=== PATIENT | female | born 1990 ===

== ENCOUNTER 2024-03-15 11:01 | Inpatient (IN) | payer OTHER ==
[~2024-03-15] VITALS: Ht 162.6 cm; Wt 2.3 kg
[2024-03-23 18:56] VITALS: BP 120/80
[2024-03-23] MEDS ORDERED: MISOPROSTOL 25 MCG TABLET ONE (19:20)
[2024-03-23 20:09] LABS: HEMATOCRIT 36.6 % (36.0-45.00); HEMOGLOBIN 12.1 g/dL (12.0-15.00); MEAN CORPUSCULAR HEMOGLOBIN 27.5 pg (27.00-32.0); MEAN CORPUSCULAR HGB CONC 33.1 g/dl (32.0-36.0); PLATELET COUNT 319 K/uL (150-450); RED BLOOD COUNT 4.41 M/uL (4.00-6.00); RED CELL DISTRIBUTION WIDTH 15.7 % (11.5-14.5)
[2024-03-23] MEDS ORDERED: PRENATAL TABLE1 EAC1 PO (20:11)
[2024-03-23 20:16] LABS: URINE APPEARANCE Clear; URINE BILIRRUBIN Negative (NEGATIVE); URINE BLOOD Negative; URINE COLOR Dark Yellow; URINE GLUCOSE Negative (NEGATIVE); URINE KETONE Trace (NEGATIVE); URINE LEUKOCYTE Negative; URINE NITRATE Negative; URINE PROTEIN 30 (NEGATIVE)
[2024-03-23 20:19] LABS: URINE BACTERIA 558.1 uL (0.0-1933); URINE EPITHELIAL CELLS 14.8 uL (0.0-38.8); URINE RBC 28.8 uL (0.0-20.8); URINE WBC 8.8 uL (0.0-23.2)
[2024-03-23 20:20] LABS: URINE CAST 0.58 uL (0.0-1.40)
[2024-03-23 20:24] LABS: INR < 0.93; PARTIAL THROMBOPLASTIN TIME 32.7 SECONDS (22.0-34.0); PROTHROMBIN TIME 9.9 SECONDS (9.0-11.5)
[2024-03-23 20:36] LABS: ALBUMIN 2.7 gm/dL (3.4-5.0); BILIRUBIN TOTAL 0.29 mg/dL (0.3-1.2); CALCIUM 8.6 mg/dL (8.5-10.1); CREATININE SERUM 0.51 mg/dL (0.55-1.02); GFR 138.04; GLOBULINA 3.7 G/DL (2.4-3.5); POTASSIUM 4.02 mEq/L (3.5-5.1); TOTAL PROTEIN 6.4 gm/dL (6.4-8.2)
[2024-03-23] MEDS ORDERED: RINGERS SOLUTION,LACTATED 1,000 ML IV SCH (22:45)
[2024-03-23] MEDS ORDERED: MORPHINE SULFATE 4 MG/ML VIAL IV PRN (23:15)
[2024-03-23 23:23] VITALS: BP 114/64
[2024-03-23] MEDS ORDERED: TERBUTALINE SULFATE 1 MG/ML AMPUL ONE (23:52)
[2024-03-24] MEDS ORDERED: ERYTHROMYCIN BASE OPHT 1GM EACH TUBE OP ONE ×2 (00:04→02:15)
[2024-03-24] MEDS ORDERED: OXYTOCIN 10 UNITS/ML VIAL ONE (00:04)
[2024-03-24] MEDS ORDERED: TERBUTALINE SULFATE 1 MG/ML AMPUL SUBCUTANEO ONE (00:15)
[2024-03-24] MEDS ORDERED: METOCLOPRAMIDE HCL 5 MG/ML VIAL ONE (00:38)
[2024-03-24] MEDS ORDERED: MORPHINE SULFATE 4 MG/ML CARTRIDGE IV PRN (01:45)
[2024-03-24] MEDS ORDERED: OXYTOCIN 1,000 ML IV SCH (01:45)
[2024-03-24] MEDS ORDERED: OXYTOCIN 10 UNITS/ML VIAL IV ONE (02:15)
[2024-03-24] MEDS ORDERED: MORPHINE SULFATE 4 MG/ML VIAL IV ONE (03:30)
[2024-03-24 05:17] VITALS: BP 109/68
[2024-03-24 08:05] VITALS: BP 107/70
[2024-03-24] MEDS ORDERED: OxyCODONE HCL/APAP UD (PERCOCET) PO PRN (12:30)
[2024-03-24 15:44] VITALS: BP 113/77
[2024-03-25 00:38] VITALS: BP 109/70
[2024-03-25] MEDS ORDERED: IBUprofen 400 MG TABLET PO SCH (09:00)
[2024-03-25 14:45] LABS: HEMATOCRIT 33.5 % (36.0-45.00); HEMOGLOBIN 11.1 g/dL (12.0-15.00); MEAN CELL VOLUME 84.2 fL (80.00-100.00); MEAN CORPUSCULAR HEMOGLOBIN 27.9 pg (27.00-32.0); MEAN CORPUSCULAR HGB CONC 33.1 g/dl (32.0-36.0); PLATELET COUNT 304 K/uL (150-450); RED BLOOD COUNT 3.97 M/uL (4.00-6.00)
[2024-03-25 16:05] VITALS: BP 110/74
[2024-03-26 01:22] VITALS: BP 128/85
[2024-03-26 09:05] VITALS: BP 135/81
[2024-03-26 16:49] VITALS: BP 113/66
[2024-03-27 01:32] VITALS: BP 129/73
[2024-03-27 08:50] VITALS: BP 110/75
== END 2024-03-27 15:10 | disposition home or self-care (01) | DRG 788 ==
LOC: OB/GYN 03-23 16:38 → LDR 03-23 16:38 → OB/GYN 03-24 07:09
PROVIDERS: ADMIT Obstetrics & Gynecology; ATTEND Obstetrics & Gynecology
PROC: 3E0P7VZ Introduction of Hormone into Female Reproductive, Via Natural or Artificial Opening (ICD-10-PCS; 2024-03-23)
PROC: 4A1HXCZ Monitoring of Products of Conception, Cardiac Rate, External Approach (ICD-10-PCS; 2024-03-23)
PROC: 10D00Z1 Extraction of Products of Conception, Low, Open Approach (ICD-10-PCS; principal; 2024-03-24)
PROC: 3E033VJ Introduction of Other Hormone into Peripheral Vein, Percutaneous Approach (ICD-10-PCS; 2024-03-24)
DX: O36.8330 Maternal care for abnormalities of the fetal heart rate or rhythm, third trimester, not applicable or unspecified (principal); O69.81X0 Labor and delivery complicated by cord around neck, without compression, not applicable or unspecified; Z3A.39 39 weeks gestation of pregnancy; Z37.0 Single live birth; Z20.822 Contact with and (suspected) exposure to COVID-19